=== PATIENT | female | born 1995 ===

== ENCOUNTER → 2025-02-28 00:39 | Outpatient (CLI) | payer OTHER, SELFPAY ==
--- NOTE | 2025-02-28 | DI.RAD_ITS ---
Exam(s) XR CHEST 2V PA LATERAL EXAM: XR CHEST 2V PA LATERAL CLINICAL HISTORY: SHORTNESS OF BREATH, R06.02 [facility] [id number] TECHNIQUE: 2D digital imaging was performed. Two views. COMPARISON: No exams were available for comparison FINDINGS: HEART: Normal size. Aorta: Not dilated. PULMONARY VASCULATURE: Normal. MEDIASTINUM: Unremarkable. LUNGS: Clear. PLEURAL SPACE: No pleural effusion or pneumothorax. BONE:Unremarkable for age. SOFT TISSUES: Unremarkable. IMPRESSION: No acute abnormality. DATA REPOSITORY: RADIATION DOSE DELIVERED:
== END ==
PROVIDERS: Visit Provider Chiropractor
DX: R06.02 Shortness of breath (principal)
CPT/HCPCS: 71046

== ENCOUNTER 2025-02-28 00:52 | Outpatient (CLI) | payer OTHER, SELFPAY ==
[2025-02-28] MEDS: Inhaler, Assist Device 1 EACH MC (15:41)
[2025-02-28] MEDS: Levalbuterol HFA 15 GM INH 4 PUFF IH (15:42)
--- NOTE | 2025-03-04 08:30 | W.PFT ---
Date of service: 02/28/25 Time of Service: 14:55 Pulmonary Function Test Result Indications: Dyspnea Impression 1. Good patient effort was noted. ATS standards for reproducibility were met. 2. Normal spirometry. 3. Following the administration of a bronchodilator there was not a significant response
== END 2025-02-28 00:53 | disposition home or self-care (01) ==
LOC: RT 00:53
PROVIDERS: Visit Provider Internal Medicine Pulmonary Disease
DX: R06.00 Dyspnea, unspecified (principal)
CPT/HCPCS: 94060